=== PATIENT | male | born 1960 | race Caucasian/White ===

== ENCOUNTER 2018-01-24 01:53 | Emergency (ER) | payer OTHER ==
[~2018-01-24] VITALS: Ht 172.7 cm; Wt 66.2 kg
--- NOTE | 2018-01-24 02:00 | NUR ---
CALLED PT NAME X3 IN WAITING ROOM, NO ONE RESPONDED, PER ADMITTING PT STEPPED OUTSIDE.
[2018-01-24] MEDS ORDERED: CHLORDIAZEPOXIDE HCL 25 MG CAPSULE PO ONE (05:00)
[2018-01-24] MEDS ORDERED: CHLORDIAZEPOXIDE HCL 25 MG CAPSULE ONE (05:12)
--- NOTE | 2018-01-24 05:35 | NUR ---
Patient discharged to home in stable condition. Written and verbal after care instructions given. Patient verbalizes understanding of instruction.
[2018-01-24 06:05] VITALS: BP 108/70
== END 2018-01-24 05:35 | disposition home or self-care (01) ==
LOC: ER 01:58
DX: F10.239 Alcohol dependence with withdrawal, unspecified (principal); R56.9 Unspecified convulsions; I10 Essential (primary) hypertension; J43.9 Emphysema, unspecified; E11.9 Type 2 diabetes mellitus without complications; F41.9 Anxiety disorder, unspecified; F43.10 Post-traumatic stress disorder, unspecified; F17.200 Nicotine dependence, unspecified, uncomplicated; Y90.9 Presence of alcohol in blood, level not specified; Z86.19 Personal history of other infectious and parasitic diseases; Z88.0 Allergy status to penicillin; Z88.2 Allergy status to sulfonamides; Z60.2 Problems related to living alone
CPT/HCPCS: 99283; A4606; Z7610

== ENCOUNTER 2019-01-14 23:50 | Inpatient (IN) | payer OTHER ==
[~2019-01-14] VITALS: Ht 167.6 cm; Wt 66.7 kg
[2019-01-15] MEDS ORDERED: ASPIRIN 81 MG TAB.CHEW PO ONE (00:30)
[2019-01-15] MEDS ORDERED: ASPIRIN 81 MG TAB.CHEW ONE (00:32)
[2019-01-15] MEDS ORDERED: ONDANSETRON HCL/PF 4 MG/2 ML VIAL ONE (00:44)
[2019-01-15 00:45] LABS: BASOPHILS # (AUTO) 0.1 /CMM (0.0-0.2); BASOPHILS % (AUTO) 0.8 % (0.0-2.0); EOSINOPHILS % (AUTO) 1.6 % (0.0-6.0); HEMATOCRIT 40 % (39-51); HEMOGLOBIN 13.8 g/dL (13.5-17.5); LYMPHOCYTES # (AUTO) 1.4 /CMM (0.8-4.8); LYMPHOCYTES % (AUTO) 16.5 % (20.0-44.0); MEAN CORPUSCULAR HGB CONC 35 g/dl (31.0-36.0); MEAN CORPUSCULAR VOLUME 81 fL (80-96); MONOCYTES # (AUTO) 0.4 /CMM (0.1-1.30); MONOCYTES % (AUTO) 5.3 % (2.0-12.0); NEUTROPHILS # (AUTO) 6.3 /CMM (1.8-8.9); NEUTROPHILS % (AUTO) 75.8 % (43.0-81.0); PLATELET COUNT (AUTO) 285 /CMM (150-450); RED BLOOD CELL COUNT(AUTO) 4.93 MIL/uL (4.5-6.0); WHITE BLOOD COUNT (AUTO) 8.3 K/uL (4.3-11.0)
[2019-01-15] MEDS ORDERED: LEVETIRACETAM (250 MG) 250 MG TABLET PO ONE ×2 (00:45→01:00)
[2019-01-15] MEDS ORDERED: oxyCODONE/APAP (5/325 MG) 1 UDTAB TABLET ONE (00:45)
--- NOTE | 2019-01-15 00:45 | NUR ---
BIBSELF. TO ER BED 11. AAOX4. NO RESP DISTRESS NOTED, BREATHING EVEN AND UNLABORED. AMBULATORY. C/O R CHEST PAIN WHICH IS CHRONIC. PT REPORTS PAIN 10/10 [place]ARP ON HIS RIGHT CHEST. PT REPORTS THAT HE HAS STAGE 4 LUNG CANCER AND ESRD. PT ALSO REPORTS BEING NAUSEA AND FATIGUED. MD WAS AT BEDSIDE FOR EVAL. ORDERS RECEIVED, NOTED AND CARRIED OUT. IV LINE OBTAINED ON R AC 20G. BLOOD DRAWN AND GIVEN TO COIN ROLLING MACHINE OPERATOR. EKG DONE BY EMT. XRAY AT BEDSIDE
[2019-01-15 00:54] LABS: CALCIUM, SERUM 8.8 mg/dL (8.5-10.1); CARBON DIOXIDE 29 mmol/L (21-32); CHLORIDE 106 mmol/L (98-107); CREATININE 1.1 mg/dL (0.6-1.3); GLUCOSE 99 mg/dL (74-106); POTASSIUM 4.7 mmol/L (3.5-5.1); SODIUM SERUM 141 mmol/L (136-145); UREA NITROGEN, BLOOD 24 mg/dL (7-18)
[2019-01-15] MEDS ORDERED: oxyCODONE/APAP (5/325 MG) 1 UDTAB TABLET PO ONE (01:00)
[2019-01-15] MEDS ORDERED: ONDANSETRON HCL/PF - ER 4 MG/2 ML VIAL IV ONE (01:00)
[2019-01-15 01:07] LABS: ALANINE AMINOTRANSFERASE 16 U/L (12-78); ALBUMIN 3.9 g/dL (3.4-5.0); ALKALINE PHOSPHATASE 70 U/L (46-116); ASPARTATE AMINOTRANSFERASE 17 U/L (15-37); B-TYPE NATRIURETIC PEPTIDE 224 PG/ML (0-125); BILIRUBIN,DIRECT 0.1 mg/dL (0.0-0.2); BILIRUBIN,TOTAL 0.2 mg/dL (0.2-1.0); TOTAL PROTEIN, SERUM 7.4 g/dL (6.4-8.2)
[2019-01-15] MEDS ORDERED: IV NS 0.9% 250 ML IV ONE (01:55)
[2019-01-15] MEDS ORDERED: CT SWABBABLE VALVE TRANS SET 1 EA INFUS.SET MC ONE (01:55)
[2019-01-15] MEDS ORDERED: IOHEXOL-350 100 ML VIAL IV ONE (01:55)
--- NOTE | 2019-01-15 02:06 | NUR ---
REPORT GIVEN TO CLARIBEL MCCOY FOR FREDRICK. PT TO [phone]
[2019-01-15 02:20] VITALS: BP 155/82
--- NOTE | 2019-01-15 02:28 | NUR ---
PT BACK FROM CT ON [facility]. PT THEN SENT UP TO UNIT WITH EMT AND RN AT BEDSIDE. NAD NOTED DURING TRANSPORT.
--- NOTE | 2019-01-15 02:30 | NUR ---
TELE CLAIM TECHNICIAN INITIAL NOTES ADMIT PT FROM ER VIA GURNEY ACCOMPANIED BY ER NURSE AND TECH. DX OF CHEST PAIN. PT IS ALERT ORIENTED X4 AMBULATORY , PLEASANT, NO SIGNS OF ANY ACUTE DISTRESS NOTED , NO SOB . NOTICED MULTIPLE TATTOE ON HIS BODY AND ARM AND LEGS. SKIN WARM AND DRY TO TOUCH, ASSESSMENT DONE AND RECORDED . TELE SINUS RHYTHM HEART RATE 77 . ORIENTED HIM HOW TO USED THE CALL LIGHT SYSTEM AND ENCOURAGE HIM TO USE IT IF HE NEEDS ASSISTANCE OR HELP. KEPT HIM WARM AND COMFORTABLE AT ALL TIMES. REFUSED TO HAVE HIS SIDE RAILS UP EVEN I EXPLAINED TO HIM THE PURPOSE OF IT HE STATED HE'S OK AND COMFORTABLE WITHOUT IT. PLACE CALL LIGHT AT REACH. WILL CONTINUE MONITORING.
[2019-01-15 02:45] VITALS: BP 135/82
[2019-01-15 02:56] LABS: APPEARANCE,URINE Clear (CLEAR); BILIRUBIN,URINE Negative (NEGATIVE); BLOOD, URINE Negative Ery/uL (NEGATIVE); COLOR,URINE Yellow (YELLOW); KETONES,URINE Negative (NEGATIVE); LEUKOCYTE ESTERASE ,URINE Negative (NEGATIVE); NITRITE, URINE Negative (NEGATIVE); PH,URINE 6.5 (5.0-8.0); PROTEIN,URINE Negative (NEGATIVE); UGLUCOSE Negative (NEGATIVE); UROBILINOGEN,URINE 0.2 EU/dL (0.2)
[2019-01-15] MEDS ORDERED: LORA-259 PO (03:27)
[2019-01-15] MEDS ORDERED: AMLO10TA7 PO (03:27)
[2019-01-15] MEDS ORDERED: ASPI-1169 PO (03:27)
[2019-01-15] MEDS ORDERED: HYDR8TAB2 PO (03:27)
[2019-01-15] MEDS ORDERED: LEVE1000 PO (03:27)
[2019-01-15 04:00] VITALS: BP 109/67
[2019-01-15] MEDS ORDERED: Z GUARD REMEDY 2 OZ OINT TP PRN (04:00)
[2019-01-15] MEDS ORDERED: NITROGLYCERIN 0.4 MG/TAB BOTTLE SL PRN (04:00)
[2019-01-15] MEDS ORDERED: ZOLPIDEM TARTRATE 5 MG TABLET PO PRN (04:00)
[2019-01-15] MEDS ORDERED: ACETAMINOPHEN 325 MG TABLET PO PRN (04:00)
[2019-01-15] MEDS ORDERED: ONDANSETRON HCL/PF 4 MG/2 ML VIAL IVP PRN (04:00)
[2019-01-15] MEDS ORDERED: MORPHINE SULFATE INJ 2 MG/ML DISP.SYRIN IV PRN (04:00)
[2019-01-15] MEDS ORDERED: LORAZEPAM 1 MG TABLET PO PRN ×2 (04:00→12:00)
[2019-01-15] MEDS ORDERED: MAG HYDROX/AL HYDROX/SIMETH 30 ML UDC PO PRN (04:00)
[2019-01-15] MEDS ORDERED: HYDROCODONE/APAP 5/325MG 1 EACH TABLET PO PRN (04:00)
[2019-01-15] MEDS ORDERED: MAGNESIUM HYDROXIDE 30 ML UDC PO PRN (04:00)
[2019-01-15] MEDS ORDERED: HYDROCODONE/APAP 10/325MG 1 EA TABLET PO PRN (04:00)
--- NOTE | 2019-01-15 04:50 | NUR ---
TELE GLOST TILE SHADER NOTES C/O GENERALIZED PAIN 6/10 , NORCO TABLET GIVEN ORDERED. WILL CONTINUE MONITORING . PLACE CALL LIGHT AT REACH.
--- NOTE | 2019-01-15 07:04 | NUR ---
TELE PARACHUTE CROWN SEWER CLOSING NOTES PT REMAINS SLEEPING AT THIS TIME AFTER PAIN MEDICATION GIVEN EARLIER. BREATHING EVEN AND UNLABORED NOT IN ANY DISTRESS NOTED. TELE SINUS RHYTHM PER MONITOR. KEPT HIM WARM AND COMFORTABLE AT ALL TIMES. WILL ENDORSE TO AM NURSE FOR CONTINUITY OF CARE.
[2019-01-15] MEDS ORDERED: PANTOPRAZOLE 40 MG TABLET.DR PO SCH (07:30)
[2019-01-15] MEDS ORDERED: ENOXAPARIN SODIUM 40 MG/0.4 ML DISP.SYRIN SQ SCH (07:30)
[2019-01-15] MEDS: LEVALBUTEROL HCL NEB 1.25 MG/0.5 ML VIAL.NEB IH SCH ×2 (07:35→11:40)
[2019-01-15 08:00] VITALS: BP 105/56
--- NOTE | 2019-01-15 08:00 | NUR ---
MS RN NOTES PATIENT IN BED RESTING NO SOB OR ACUTE DISTRESS NOTED. PATIENT ALERT, ORIENTED X4. PERIPHERAL IV INTACT PATENT. CALL LIGHT WITHIN REACH. BED IN LOW LOCKED POSITION. WILL CONTINUE TO MONITOR.
[2019-01-15] MEDS ORDERED: ASPIRIN 81 MG TAB.CHEW PO SCH (09:00)
[2019-01-15] MEDS ORDERED: LEVETIRACETAM (250 MG) 250 MG TABLET PO SCH (09:00)
[2019-01-15] MEDS ORDERED: HYDROMORPHONE HCL 2 MG TABLET PO PRN (12:00)
[2019-01-15] MEDS ORDERED: AMLODIPINE BESYLATE 10 MG TABLET PO SCH (22:00)
[2019-01-16] MEDS ORDERED: NICOTINE PATCH (21MG) 21 MG PATCH.TD24 TD SCH (09:00)
== END 2019-01-15 15:10 | disposition left against medical advice (07) | DRG 191 ==
LOC: ER 23:50 → TELE 01-15 01:56 → MED 01-15 08:34
PROVIDERS: ADMIT Registered Nurse; ATTEND Registered Nurse
DX: J44.1 Chronic obstructive pulmonary disease with (acute) exacerbation (principal); I24.9 Acute ischemic heart disease, unspecified; E86.0 Dehydration; F41.9 Anxiety disorder, unspecified; F43.10 Post-traumatic stress disorder, unspecified; F17.210 Nicotine dependence, cigarettes, uncomplicated; Z91.19 Patient's noncompliance with other medical treatment and regimen; Z76.5 Malingerer [conscious simulation]; G89.4 Chronic pain syndrome; F10.10 Alcohol abuse, uncomplicated; Z86.19 Personal history of other infectious and parasitic diseases; R56.9 Unspecified convulsions; Z88.0 Allergy status to penicillin; Z88.2 Allergy status to sulfonamides; I10 Essential (primary) hypertension; E11.9 Type 2 diabetes mellitus without complications
CPT/HCPCS: 36415; 71045-TC; 80048-TC; 80076-TC; 80305; 81000-TC; 83880; 84484-TC; 85025-TC; 87081-TC; 93307-TC; 94799-TC; G0378; G0480; J1650; J2270; J2405; J7050; Q9967